=== PATIENT | male | born 1950 | race Caucasian/White ===

== ENCOUNTER 2025-06-05 07:26 | Outpatient (CLI) | payer MEDICARE, MEDICAID ==
[2025-06-05 07:59] LABS: White Blood Cell (WBC) Count 5.4 10x3/uL (4.8-10.8)
[2025-06-05 08:00] LABS: %Basophils 0.5 % (0.0-1.0); %Eosinophils 4.7 % (0.0-10.0); %Lymphocytes 18.1 % (21.0-51.0); %Monocytes 9.9 % (0.0-10.0); %Neutrophils 66.8 % (42.0-75.0); Hematocrit 34.0 % (42.0-52.0); Hemoglobin 11.1 g/dL (14.0-18.0); Mean Corpuscular Hemoglobin 32.5 pg (27.0-31.0); Mean Corpuscular Volume 99.0 fl (78.0-98.0); Platelet Count 208 10x3/uL (130-400); Red Blood Cell (RBC) Count 3.43 mill/uL (4.70-6.10)
[2025-06-05 08:01] LABS: #Basophils 0.0 thou/uL (0.0-0.2); #Eosinophils 0.3 thou/uL (0.0-0.7); #Lymphocytes 1.0 thou/uL (1.20-3.40); #Monocytes 0.5 thou/uL (0.11-0.59); #Neutrophils 3.6 thou/uL (1.40-6.50)
[2025-06-05 09:23] LABS: ALT (SGPT) 12 U/L (Less than 45); AST (SGOT) 11 U/L (11-34); Albumin 2.9 g/dL (3.1-4.5); Alkaline Phosphatase 60 U/L (40-110); Anion Gap 15 mmol/L (10-20); BUN (Urea Nitrogen) 12 mg/dL (8.4-25.7); Bilirubin, Total 0.5 mg/dL (0.3-1.2); Calc. Creatinine Clearance 0 mL/min (70-130); Calcium 8.8 mg/dL (7.8-10.44); Carbon Dioxide 28 mmol/L (23-31); Chloride 101 mmol/L (98-107); Globulin 3.7 g/dL (2.4-3.5); Glucose 162 mg/dL (83-110); Potassium 4.0 mmol/L (3.5-5.1); Sodium 140 mmol/L (136-145)
== END 2025-06-05 07:27 | disposition home or self-care (01) ==
LOC: MADLAB 07:26
PROVIDERS: ATTEND Nurse Practitioner Primary Care
DX: C32.9 Malignant neoplasm of larynx, unspecified (principal)
CPT/HCPCS: 80053; 83036; 85025

== ENCOUNTER 2025-08-19 04:13 | Emergency (ER) | payer MEDICARE, MEDICAID ==
[2025-08-19] MEDS ORDERED: HYDROcodone/Acetaminophen 10/325 mg Tablet ONE (05:40)
== END 2025-08-19 06:10 ==
LOC: MADERS 04:13
DX: J95.00 Unspecified tracheostomy complication (principal); I10 Essential (primary) hypertension; E11.9 Type 2 diabetes mellitus without complications
CPT/HCPCS: 70360; 99284

== ENCOUNTER 2025-08-29 18:32 | Outpatient (CLI) | payer MEDICARE, OTHER ==
[2025-08-29 19:04] LABS: Anion Gap 15 mmol/L (10-20); BUN (Urea Nitrogen) 13 mg/dL (8.4-25.7); Calc. Creatinine Clearance 0 mL/min (70-130); Calcium 9.2 mg/dL (7.8-10.44); Carbon Dioxide 29 mmol/L (23-31); Chloride 98 mmol/L (98-107); Glucose 202 mg/dL (83-110); Potassium 4.3 mmol/L (3.5-5.1)
[2025-08-29 19:44] LABS: Sodium 138 mmol/L (136-145)
== END 2025-08-29 18:33 | disposition home or self-care (01) ==
LOC: MADLAB 18:32
PROVIDERS: ATTEND Nurse Practitioner Primary Care
DX: C32.9 Malignant neoplasm of larynx, unspecified (principal); E11.9 Type 2 diabetes mellitus without complications; I10 Essential (primary) hypertension
CPT/HCPCS: 80048; 87070; 87205